=== PATIENT | male | born 1945 | race Caucasian/White ===

== ENCOUNTER 2017-06-13 04:21 | Inpatient (IN) | payer OTHER ==
[~2017-06-13] VITALS: Ht 170.2 cm; Wt 84.3 kg
[2017-06-13] MEDS ORDERED: ONDANSETRON INJ 2 MG/ML 2 ML VIAL IV STA ×2 (04:53→07:42)
[2017-06-13] MEDS ORDERED: SODIUM CHLORIDE 0.9% 1000ML 1,000 ML IV STA (04:53)
[2017-06-13] MEDS ORDERED: OPTIRAY 320 IV PRN (05:00)
[2017-06-13] MEDS ORDERED: AMLO-110 PO (05:09)
[2017-06-13] MEDS ORDERED: PANT40TA PO (05:09)
[2017-06-13] MEDS ORDERED: ATOR-24 PO (05:09)
[2017-06-13] MEDS ORDERED: ENAL10TA88 PO (05:09)
[2017-06-13] MEDS ORDERED: MODA1TAB PO (05:09)
[2017-06-13] MEDS ORDERED: MULT-506 PO (05:10)
[2017-06-13] MEDS ORDERED: MULTCAP36 PO (05:10)
[2017-06-13] MEDS ORDERED: ASPI81TA28 PO (05:10)
[2017-06-13] MEDS ORDERED: OMEG10007 PO (05:10)
[2017-06-13] MEDS ORDERED: CHOL1000 PO (05:10)
[2017-06-13 05:13] LABS: URINE APPEARANCE CLEAR (CLEAR); URINE BILIRUBIN NEG (NEG); URINE COLOR DK YELLOW; URINE NITRITE NEG (NEG); URINE SPECIFIC GRAVITY 1.034 (1.000-1.030); UROBILINOGEN NEG (NEG); ZZUR CULT IF INDIC CLEAN CATCH NO
[2017-06-13 05:16] LABS: MANUAL MICROSCOPIC REQUIRED? NO; REVIEW REQ? NO
[2017-06-13 05:34] LABS: BASO % 0.1 %; BASO ABS # 0.01 K/uL (0-0.2); COMPLETE YES; IG% 0.3 %; LYMPH % 3.2 %; LYMPH ABS # 0.48 K/uL (1.2-3.4); MEAN CORPUSCULAR HEMOGLOBIN 32.1 pg (25-34); MEAN CORPUSCULAR HGB CONC 34.5 g/dl (32-36); MEAN PLATELET VOLUME 9.6 fL (7.4-10.4); MONO % 4.7 %; NEUT % 91.7 %; PLATELET COUNT 185 K/uL (130-400); RED BLOOD COUNT 4.73 M/uL (4.7-6.1); WHITE BLOOD COUNT 14.96 K/uL (4.8-10.8)
--- NOTE | 2017-06-13 05:36 | EMERGENCY ROOM VISIT NOTE ---
History First contact with patient: 04:32 Chief Complaint: VOMITING Stated Complaint: NAUSEA,VOMITING,STOMACH PAIN,HICCUPS Nursing Triage Summary: pt c/o GI problems since tuesday. reports constipation tuesday and retching/vomiting tuesday. pt reports stools are now soft/watery. pt states he feels bloated and is unable to keep "anything down." pt states he takes a proton pump inhibitor. bowel sounds WNL. abdomen rounded, distended, soft. History of Present Illness The patient is a 71 year old male who presents to the Emergency Room with complaints of vomiting. The patient states that he had a loose bowel movement yesterday in the late morning. He reports that after that, he developed vomiting and has had multiple episodes of vomiting since that period he has been unable to keep anything down. He states that he developed hiccups, and has multiple episodes of vomiting. He states that his abdomen feels uncomfortable, but denies any focal pain. He denies any history of abdominal surgeries. He has had no further episodes of diarrhea. He denies fevers/chills or urinary symptoms. He does report a history of H. pylori and currently takes a proton pump inhibitor for reflux. Review of Systems A complete 10 point review of systems was reviewed with the patient with pertinent positives and negatives as per history of present illness. All else were negative. Past Medical/Surgical History Medical Problems: (1) Vomiting Social History Smoking Status: Never Smoker Current/Historical Medications Scheduled Amlodipine (Norvasc), 5 MG PO DAILY Aspirin (Aspirin Ec), 81 MG PO DAILY Atorvastatin (Lipitor), 40 MG PO DAILY Cholecalciferol (Vitamin D3), 1 TAB PO DAILY Enalapril (Vasotec), 10 MG PO DAILY Fish Oil ([place]-3), 1 CAP PO DAILY Modafinil (Provigil), 200 MG PO DAILY Multiple Vitamins W/ Minerals (Preservision/Lutein), 1 CM PO DAILY Multivitamin (Multivitamin), 1 TAB PO DAILY Pantoprazole (Protonix), 40 MG PO DAILY Physical Exam Vital Signs Date Time Temp Pulse Resp B/P (MAP) Pulse Ox O2 Delivery O2 Flow Rate FiO2 06/13/17 07:45 92 18 126/75 94 Room Air 06/13/17 05:44 94 18 119/83 96 Room Air 06/13/17 04:29 37.0 94 20 116/75 95 Room Air Physical Exam VITALS: Vitals are noted on the nurse's note and reviewed by myself. Vital signs stable. GENERAL: This is a 71-year-old male, in no acute distress, nondiaphoretic, well- developed well-nourished. EARS: External auditory canals clear, tympanic membranes pearly tobias without erythema or effusion bilaterally. EYES: Pupils equal round and reactive to light and accommodation. MOUTH: Mucous membranes moist. NECK: Supple without nuchal rigidity. HEART: Regular rate and rhythm without murmurs gallops or rubs. LUNGS: Clear to auscultation bilaterally without wheezes, rales or rhonchi. ABDOMEN: Positive bowel sounds x 4. Soft, slight diffuse tenderness to palpation. No guarding or rebound tenderness. NEURO: Patient was alert and oriented to person place and time. Medical Decision & Procedures ER Provider Diagnostic Interpretation: ABDOMEN AND PELVIS CT WITHOUT CONTRAST FINDINGS: There is mild left hemidiaphragm elevation. Calcified granuloma left lower lobe is noted in addition to calcified left hilar lymph nodes. There are linear subsegmental pleural based opacities of the left lower lobe suggesting atelectasis or scarring. Mild dependent bibasilar atelectasis. Groundglass opacities of the right middle lobe and lingula may also reflect atelectasis or mild pneumonitis. There is no pneumoperitoneum or pneumatosis identified. The exam is mildly motion degraded. Coronary arterial disease noted. Evaluation of the solid abdominal organs is limited without the use of IV contrast. The liver, spleen, pancreas and adrenal glands are within normal limits. There are multiple gallstones in the gallbladder. No CT evidence of acute cholecystitis. No intrahepatic biliary ductal dilation. Mild nonspecific bilateral perinephric stranding. 10 mm low attenuating lesion of the inferior pole left kidney suggests cyst. Probable nonobstructing calculus of the interpolar right kidney seen on image 174 series 3. Ureters and urinary bladder are unremarkable. There is mild atherosclerosis of the aorta. No bulky adenopathy. There are multiple mildly dilated loops of small bowel within the lower abdomen and pelvis with air-fluid levels measuring up to 3.3 cm transversely. No definite transition point identified. Colonic diverticulosis without diverticulitis. Appendix not visualized. Soft tissues are unremarkable. There is facet arthrosis of the lower lumbar spinal multilevel spondylitic changes. IMPRESSION: 1. Multiple mildly dilated loops of small bowel within the lower abdomen and pelvis with air-fluid levels without discrete transition point identified. These findings are suspicious for low-grade small bowel obstruction or ileus. Follow-up recommended. No pneumoperitoneum or pneumatosis. 2. Colonic diverticulosis without diverticulitis. 3. Cholelithiasis without CT evidence of acute cholecystitis. 4. Evidence of prior granulomatous disease. Laboratory Results 06/13/17 05:25 Red Blood Count 4.73, Mean Corpuscular Volume 93.0, Mean Corpuscular Hemoglobin 32.1, Mean Corpuscular Hemoglobin Concent 34.5, Mean Platelet Volume 9.6, Neutrophils (%) (Auto) 91.7, Lymphocytes (%) (Auto) 3.2, Monocytes (%) (Auto) 4.7, Eosinophils (%) (Auto) 0.0, Basophils (%) (Auto) 0.1, Neutrophils # (Auto) 13.71, Lymphocytes # (Auto) 0.48, Monocytes # (Auto) 0.71, Eosinophils # (Auto) 0.00, Basophils # (Auto) 0.01 06/13/17 05:25 Test 06/13/17 04:50 06/13/17 05:25 Urine Color DK YELLOW Urine Appearance CLEAR (CLEAR) Urine pH 5.0 (4.5-7.5) Urine Specific [place] 1.034 (1.000-1.030) Urine Protein TRACE (NEG) Urine Glucose (UA) NEG (NEG) Urine Ketones NEG (NEG) Urine Occult Blood NEG (NEG) Urine Nitrite NEG (NEG) Urine Bilirubin NEG (NEG) Urine Urobilinogen NEG (NEG) Urine Leukocyte Esterase NEG (NEG) Urine WBC (Auto) 1-5 /hpf (0-5) Urine RBC (Auto) 5-10 /hpf (0-4) Urine Hyaline Casts (Auto) 1-5 /lpf (0-5) Urine Epithelial Cells (Auto) 10-20 /lpf (0-5) Urine Bacteria (Auto) NEG (NEG) White Blood Count 14.96 K/uL (4.8-10.8) Red Blood Count 4.73 M/uL (4.7-6.1) Hemoglobin 15.2 g/dL (14.0-18.0) Hematocrit 44.0 % (42-52) Mean Corpuscular Volume 93.0 fL (80-100) Mean Corpuscular Hemoglobin 32.1 pg (25-34) Mean Corpuscular Hemoglobin Concent 34.5 g/dl (32-36) Platelet Count 185 K/uL (130-400) Mean Platelet Volume 9.6 fL (7.4-10.4) Neutrophils (%) (Auto) 91.7 % Lymphocytes (%) (Auto) 3.2 % Monocytes (%) (Auto) 4.7 % Eosinophils (%) (Auto) 0.0 % Basophils (%) (Auto) 0.1 % Neutrophils # (Auto) 13.71 K/uL (1.4-6.5) Lymphocytes # (Auto) 0.48 K/uL (1.2-3.4) Monocytes # (Auto) 0.71 K/uL (0.11-0.59) Eosinophils # (Auto) 0.00 K/uL (0-0.5) Basophils # (Auto) 0.01 K/uL (0-0.2) RDW Standard Deviation 46.4 fL (36.4-46.3) RDW Coefficient of Variation 13.6 % (11.5-14.5) Immature Granulocyte % (Auto) 0.3 % Immature Granulocyte # (Auto) 0.05 K/uL (0.00-0.02) Anion Gap 9.0 mmol/L (3-11) Est Creatinine Clear Calc Drug Dose 51.3 ml/min Estimated GFR () 58.5 Estimated GFR (Non- 50.5 BUN/Creatinine Ratio 23.0 (10-20) Calcium Level 8.8 mg/dl (8.5-10.1) Total Bilirubin 0.5 mg/dl (0.2-1) Aspartate Amino Transf (AST/SGOT) 19 U/L (15-37) Alanine Aminotransferase (ALT/SGPT) 32 U/L (12-78) Alkaline Phosphatase 86 U/L (45-117) Total Protein 7.0 gm/dl (6.4-8.2) Albumin 3.8 gm/dl (3.4-5.0) Globulin 3.2 gm/dl (2.5-4.0) Albumin/Globulin Ratio 1.2 (0.9-2) Lipase 102 U/L (73-393) Medications Administered Medications (Trade) Dose Ordered Sig/Seamus Route Start Time Stop Time Status Last Admin Dose Admin Sodium Chloride 1,000 ml @ 999 mls/hr Q1H1M STAT IV 06/13/17 04:53 06/13/17 05:53 DC 06/13/17 05:26 999 MLS/HR Ondansetron HCl (Zofran Inj) 4 mg NOW STAT IV 06/13/17 04:53 06/13/17 04:55 DC 06/13/17 05:25 4 MG Ondansetron HCl (Zofran Inj) 4 mg NOW STAT IV 06/13/17 07:42 06/13/17 07:43 DC 06/13/17 07:49 4 MG ED Course The patient was evaluated as above. Labs were drawn and IV access was obtained. Patient was medicated with 4 mg Zofran and 1 L normal saline solution. CT of the abdomen and pelvis was performed and read by radiology as above. Patient was reevaluated and findings were discussed. He is agreeable to admission. Case was discussed with the [facility] hospitalist, Dr. Goodman. They agreed to evaluate the patient for admission. Medical Decision Differential diagnosis includes small bowel obstruction, gastroenteritis, colitis, diverticulitis, cholecystitis, among others. The patient is a 71-year-old male who presents today complaining of vomiting. Labs revealed leukocytosis of 14,000. Creatinine is slightly elevated at 1.4, likely secondary to dehydration as the patient has had nothing to drink or eat since yesterday. CT scan showed findings consistent with low-grade small bowel obstruction. Patient will better after treatment with Zofran. He will be evaluated by the [facility] hospitalist for admission. Medication Reconcilliation Current Medication List: was personally reviewed by [place] Blood Pressure Screening Patient's blood pressure: Normal blood pressure Impression Primary Impression: Small bowel obstruction Departure Information Referrals No Doctor, Assigned (PCP) Patient Instructions [facility]
[2017-06-13 05:51] LABS: CALCIUM 8.8 mg/dl (8.5-10.1); CREATININE 1.41 mg/dl (0.60-1.40); POTASSIUM 3.9 mmol/L (3.5-5.1)
[2017-06-13 05:54] LABS: ALB/GLOB RATIO 1.2 (0.9-2)
--- NOTE | 2017-06-13 06:59 | DIAGNOSTIC IMAGING REPORT ---
ABDOMEN AND PELVIS CT WITHOUT CONTRAST CT DOSE: 464.04 mGy.cm HISTORY: Acute vomiting. vomiting, elevated creat TECHNIQUE: Multiaxial CT images of the abdomen and pelvis were performed without contrast. A dose lowering technique was utilized adhering to the principles of ALARA. COMPARISON STUDY: None. FINDINGS: There is mild left hemidiaphragm elevation. Calcified granuloma left lower lobe is noted in addition to calcified left hilar lymph nodes. There are linear subsegmental pleural based opacities of the left lower lobe suggesting atelectasis or scarring. Mild dependent bibasilar atelectasis. Groundglass opacities of the right middle lobe and lingula may also reflect atelectasis or mild pneumonitis. There is no pneumoperitoneum or pneumatosis identified. The exam is mildly motion degraded. Coronary arterial disease noted. Evaluation of the solid abdominal organs is limited without the use of IV contrast. The liver, spleen, pancreas and adrenal glands are within normal limits. There are multiple gallstones in the gallbladder. No CT evidence of acute cholecystitis. No intrahepatic biliary ductal dilation. Mild nonspecific bilateral perinephric stranding. 10 mm low attenuating lesion of the inferior pole left kidney suggests cyst. Probable nonobstructing calculus of the interpolar right kidney seen on image 174 series 3. Ureters and urinary bladder are unremarkable. There is mild atherosclerosis of the aorta. No bulky adenopathy. There are multiple mildly dilated loops of small bowel within the lower abdomen and pelvis with air-fluid levels measuring up to 3.3 cm transversely. No definite transition point identified. Colonic diverticulosis without diverticulitis. Appendix not visualized. Soft tissues are unremarkable. There is facet arthrosis of the lower lumbar spinal multilevel spondylitic changes. IMPRESSION: 1. Multiple mildly dilated loops of small bowel within the lower abdomen and pelvis with air-fluid levels without discrete transition point identified. These findings are suspicious for low-grade small bowel obstruction or ileus. Follow-up recommended. No pneumoperitoneum or pneumatosis. 2. Colonic diverticulosis without diverticulitis. 3. Cholelithiasis without CT evidence of acute cholecystitis. 4. Evidence of prior granulomatous disease. Electronically signed by: Ronnie Steven M.D. 06/13/2017 6:58 AM Dictated Date/Time: 06/13/2017 6:51 AM
[2017-06-13] MEDS ORDERED: ONDANSETRON INJ 2 MG/ML 2 ML VIAL IV PRN (07:45)
[2017-06-13 08:00] VITALS: O2SAT 94; Ht 170.2 cm; Wt 84.3 kg
[2017-06-13] MEDS ORDERED: HEPARIN SOD 5000 UNIT/0.5 ML CARP SQ SCH (09:00)
--- NOTE | 2017-06-13 09:42 | History and Physical ---
History & Physical Date & Time of Service: Jun 13, 2017 at 09:08 Chief Complaint: Nausea,Vomiting,Stomach Pain,Hiccups Primary Care Physician: No Doctor, Assigned History of Present Illness Source: patient, family Pt is 71 y/o M with PMH CAD with stent to LAD in 2013, HTN, GERD, CKD, SANCHEZ presented to ER with c/o vomiting. Pt reports 2 days ago started with some nausea and constipation. Initially took maalox with a little relief and ate a big meal. Had loose BM yesterday. Pt states yesterday started with increased nausea and vomiting and reports multiple episodes of vomiting over the past 15 hours. States dry heaves this am. No BM today. Last night temp 99F. Feels bloated and having epigastric pressure and burping and hiccups. Nothing to eat since yesterday. Tried sipping water through the night but had vomiting. Denies hx abdominal surgery or SBO in past. Denies hematemesis, melena, hematochezia, dysuria, urinary frequency/hesitancy, PAUL, dizziness, syncope, vision changes, neck pain, CP, SOB, orthopnea, palpitations, cough, sore throat, choking, otalgia, rhinorrhea, paresthesias, weakness, extremity edema, rashes. Pt visiting daughter. Is from [place]. PCP: Dr Olesya Huffman. In ER pt given 2 doses Zofran which pt states no further nausea and decreased epigastric pressure. No further vomiting. Given 1L NSS. Pt denies pain medicine at this time. CT abd/pelvis: Multiple mildly dilated loops of small bowel within the lower abdomen and pelvis with air-fluid levels without discrete transition point identified. suspicious for low-grade small bowel obstruction or ileus. No pneumoperitoneum or pneumatosis. Colonic diverticulosis without diverticulitis. Cholelithiasis without CT evidence of acute cholecystitis. Past Medical/Surgical History Medical Problems: (1) CAD (coronary artery disease) Permanent Comment: hx stent to LAD-2013 Status: Chronic (2) Chronic kidney disease Status: Chronic (3) GERD (gastroesophageal reflux disease) Status: Chronic (4) HTN (hypertension) Status: Chronic (5) Hx of Helicobacter infection Permanent Comment: pt reports 2011. dx with stool h. pylori testing. was treated Status: Resolved (6) SANCHEZ (obstructive sleep apnea) Status: Chronic Surgical Problems: (1) Hx of colonoscopy Permanent Comment: pt reports 2014 - polyps Status: Resolved (2) S/P coronary artery stent placement Permanent Comment: 2013 - LAD Status: Resolved Family History Diabetes mellitus FATHER FH: CAD (coronary artery disease) GRANDFATHER ([place] age 69, ) FH: hyperlipidemia FATHER FHx: Parkinson's disease MOTHER Hypertension FATHER Stroke GRANDMOTHER Social History Smoking Status: Never Smoker Smokeless Tobacco Use: No Alcohol Use: 3-4 drinks (beer/wine) a week Drug Use: none Housing status: lives alone Allergies Coded Allergies: No Known Allergies (Unverified , 06/13/17) Home Medications Scheduled Amlodipine (Norvasc), 5 MG PO DAILY Aspirin (Aspirin Ec), 81 MG PO DAILY Atorvastatin (Lipitor), 40 MG PO DAILY Cholecalciferol (Vitamin D3), 1 TAB PO DAILY Ciprofloxacin (Ciprofloxacin HCl), 1 TAB PO BID Enalapril (Vasotec), 10 MG PO DAILY Fish Oil ([place]-3), 1 CAP PO DAILY Metronidazole (Flagyl), 1 TAB PO TID Modafinil (Provigil), 200 MG PO DAILY Multiple Vitamins W/ Minerals (Preservision/Lutein), 1 CM PO DAILY Multivitamin (Multivitamin), 1 TAB PO DAILY Pantoprazole (Protonix), 40 MG PO DAILY Review of Systems Constitutional: + chills (2 days ago), + problem reported (see HPI), No weight loss Eyes: No worsening of vision, No eye pain, No redness, No discharge ENT: + problem reported, No unusual epistaxis, No nasal symptoms, No tinnitus Respiratory: No cough, No sputum, No wheezing, No shortness of breath Cardiovascular: No chest pain, No orthopnea, No PND, No edema, No palpitations Abdomen: + problem reported (see HPI) Musculoskeletal: No joint pain, No muscle pain, No swelling Genitourinary - Male: No hematuria, No dysuria, No urinary frequency, No urinary urgency, No urinary hesitancy, No urinary retention Neurologic: No weakness, No numbness/tingling, No vertigo, No balance problems Psychiatric: No depression symptoms, No anxiety Physical Exam Vital Signs Date Time Temp Pulse Resp B/P (MAP) Pulse Ox O2 Delivery O2 Flow Rate FiO2 06/13/17 07:45 92 18 126/75 94 Room Air 06/13/17 05:44 94 18 119/83 96 Room Air 06/13/17 04:29 37.0 94 20 116/75 95 Room Air General Appearance: WD/WN, no apparent distress Head: normocephalic, atraumatic Eyes: normal inspection, PERRL, EOMI, sclerae normal ENT: hearing grossly normal (pt wearing hearing aid), pharynx normal, + pertinent finding (dry mucous membranes) Neck: supple, no JVD, no carotid bruits, trachea midline Respiratory/Chest: chest non-tender, lungs clear, normal breath sounds, no respiratory distress, no accessory muscle use Cardiovascular: regular rate, rhythm, no murmur, normal peripheral pulses Abdomen/GI: + pertinent finding (obese abdomen, hypoactive BS throughout, soft , +tenderness epigastric only without rebound or guarding ) Extremities/Musculoskelatal: normal inspection, normal capillary refill, no pedal edema, normal range of motion, non-tender Neurologic/Psych: alert, normal mood/affect, oriented x 3 Skin: normal color, warm/dry, + pertinent finding (excoriation left anterior ankle without surrounding erythema or edema) Diagnostics Laboratory Results Results Past 24 Hours Test 06/13/17 04:50 06/13/17 05:25 Range/Units Urine Color DK YELLOW Urine Appearance CLEAR CLEAR Urine pH 5.0 4.5-7.5 Urine Specific [place] 1.034 1.000-1.030 Urine Protein TRACE NEG Urine Glucose (UA) NEG NEG Urine Ketones NEG NEG Urine Occult Blood NEG NEG Urine Nitrite NEG NEG Urine Bilirubin NEG NEG Urine Urobilinogen NEG NEG Urine Leukocyte Esterase NEG NEG Urine WBC (Auto) 1-5 0-5 /hpf Urine RBC (Auto) 5-10 0-4 /hpf Urine Hyaline Casts (Auto) 1-5 0-5 /lpf Urine Epithelial Cells (Auto) 10-20 0-5 /lpf Urine Bacteria (Auto) NEG NEG White Blood Count 14.96 4.8-10.8 K/uL Red Blood Count 4.73 4.7-6.1 M/uL Hemoglobin 15.2 14.0-18.0 g/dL Hematocrit 44.0 42-52 % Mean Corpuscular Volume 93.0 80-100 fL Mean Corpuscular Hemoglobin 32.1 25-34 pg Mean Corpuscular Hemoglobin Concent 34.5 32-36 g/dl Platelet Count 185 130-400 K/uL Mean Platelet Volume 9.6 7.4-10.4 fL Neutrophils (%) (Auto) 91.7 % Lymphocytes (%) (Auto) 3.2 % Monocytes (%) (Auto) 4.7 % Eosinophils (%) (Auto) 0.0 % Basophils (%) (Auto) 0.1 % Neutrophils # (Auto) 13.71 1.4-6.5 K/uL Lymphocytes # (Auto) 0.48 1.2-3.4 K/uL Monocytes # (Auto) 0.71 0.11-0.59 K/uL Eosinophils # (Auto) 0.00 0-0.5 K/uL Basophils # (Auto) 0.01 0-0.2 K/uL RDW Standard Deviation 46.4 36.4-46.3 fL RDW Coefficient of Variation 13.6 11.5-14.5 % Immature Granulocyte % (Auto) 0.3 % Immature Granulocyte # (Auto) 0.05 0.00-0.02 K/uL Sodium Level 141 136-145 mmol/L Potassium Level 3.9 3.5-5.1 mmol/L Chloride Level 105 98-107 mmol/L Carbon Dioxide Level 27 21-32 mmol/L Anion Gap 9.0 3-11 mmol/L Blood Urea Nitrogen 32 7-18 mg/dl Creatinine 1.41 0.60-1.40 mg/dl Est Creatinine Clear Calc Drug Dose 51.3 ml/min Estimated GFR () 58.5 Estimated GFR (Non- 50.5 BUN/Creatinine Ratio 23.0 10-20 Random Glucose 131 70-99 mg/dl Calcium Level 8.8 8.5-10.1 mg/dl Total Bilirubin 0.5 0.2-1 mg/dl Aspartate Amino Transf (AST/SGOT) 19 15-37 U/L Alanine Aminotransferase (ALT/SGPT) 32 12-78 U/L Alkaline Phosphatase 86 45-117 U/L Total Protein 7.0 6.4-8.2 gm/dl Albumin 3.8 3.4-5.0 gm/dl Globulin 3.2 2.5-4.0 gm/dl Albumin/Globulin Ratio 1.2 0.9-2 Lipase 102 73-393 U/L Diagnostic Radiology ABD/PELVIS CT IMPRESSION: 1. Multiple mildly dilated loops of small bowel within the lower abdomen and pelvis with air-fluid levels without discrete transition point identified. These findings are suspicious for low-grade small bowel obstruction or ileus. Follow-up recommended. No pneumoperitoneum or pneumatosis. 2. Colonic diverticulosis without diverticulitis. 3. Cholelithiasis without CT evidence of acute cholecystitis. 4. Evidence of prior granulomatous disease. EKG EKG: NSR, rate 93, no ST elevations noted Impression Assessment and Plan VOMITING - SBO vs ILEUS Pt with onset N/V, bloating, increased burping. No vomiting past 4 hours. Improved nausea and epigastric bloating sensation with zofran in ER. BS noted on abd exam. Pt afebrile. CT abd/pelvis: IMPRESSION: Multiple mildly dilated loops of small bowel within the lower abdomen and pelvis with air-fluid levels without discrete transition point identified, suspicious for low-grade small bowel obstruction or ileus. No pneumoperitoneum or pneumatosis. Colonic diverticulosis without diverticulitis Cholelithiasis without CT evidence of acute cholecystitis. WBC: 14.9. Suspect leukocytosis from vomiting. Pt with dehydration. Normal liver functions. -NPO -NSS @ 100ml/hr -Zofran IV prn N/V -pt denies pain meds at this time, will continue to monitor -cbc, cmp in am -abd xray in am -surgical consult CAD/HTN Pt denies CP, SOB. EKG: NSR, rate 93, no ST elevations noted -continue amlodipine -continue enalapril -continue lipitor -continue ASA GERD -PPI CKD No previous kidney functions available at this time. Pt reports was told "mild kidney disease". today BUN: 32, CR: 1.4, GFR: 50. Pt with some dehydration also -continue to monitor -avoid nephrotoxic agents SANCHEZ -CPAP HS per home settings -will hold home Provigil at this time DVT PROPHYLAXIS -SCDs at this time until seen by surgery DISPOSITION -admit med/surg -Full Code as per discussion with pt -Follows with Dr Olesya Bond with [facility] in [place] for routine care Pt was seen with Dr Cameron. See addendum Attending Addendum Pt was seen and examined. Agreed with Vera exam, assessment and plan. Complaint of vomiting. CT Abd/Pelvis showed multiple mildly dilated loops of small bowel within the lower abdomen and pelvis with air-fluid levels without discrete transition point identified. These findings are suspicious for low-grade small bowel obstruction or ileus. Consult surgery. Will keep NPO for now. continue monitor. Jovita Cameron MD Level of Care Med/Surg Advanced Directives Existing Living Will: No Existing Power of Scorekeeper: No Resuscitation Status FULL RESUSCITATION VTE Prophylaxis VTE Risk Assessment Done? Y/N: Yes Risk Level: Moderate Given or contraindicated: SCD's
[2017-06-13 10:00] VITALS: BP 117/73; PULSE 94; TEMP 37.2; O2SAT 93
[2017-06-13] MEDS: PANTOprazole INJ 40 MG in SYRINGE 0 ML IV SCH (11:02)
[2017-06-13] MEDS: SODIUM CHLORIDE 0.9% 1000ML 1,000 ML IV SCH ×2 (11:02→21:10)
--- NOTE | 2017-06-13 11:27 | Medical Consult ---
Consultation Date of Consultation: Jun 13, 2017. Attending Physician: Jovita Cameron M.D. Reason for Consultation: low grd sbo vs ileus History of Present Illness pt adm through ER with N/V, bloating- mult episodes of vomiting over 24 hrs assoc with dehydration. BM last pm. CT shows mildly dilated small bowel c/w low grade obstruction vs ileus- no significant abd pain. WBC 14.9 on adm. No prior abd surgery Past Medical/Surgical History Medical Problems: (1) Small bowel obstruction Status: Acute Family History Diabetes mellitus FATHER FH: CAD (coronary artery disease) GRANDFATHER ([place] age 69, ) FH: hyperlipidemia FATHER FHx: Parkinson's disease MOTHER Hypertension FATHER Stroke GRANDMOTHER Social History Smoking Status: Never Smoker Smokeless Tobacco Use: No Alcohol Use: 3-4 drinks (beer/wine) a week Drug Use: none Allergies Coded Allergies: No Known Allergies (Unverified , 06/13/17) Current Inpatient Medications Current Inpatient Medications Medications (Trade) Dose Ordered Sig/Seamus Route Start Time Stop Time Status Last Admin Dose Admin Ioversol (Optiray 320) 100 ml UD PRN IV 06/13/17 05:00 06/17/17 04:59 Sodium Chloride 1,000 ml @ 100 mls/hr Q10H IV 06/13/17 10:00 07/13/17 09:59 06/13/17 11:02 100 MLS/HR Ondansetron HCl (Zofran Inj) 4 mg Q6H PRN IV 06/13/17 07:45 07/13/17 07:44 Amlodipine Besylate (Norvasc Tab) 5 mg DAILY PO 06/14/17 09:00 07/14/17 08:59 Aspirin (Ecotrin Tab) 81 mg DAILY PO 06/14/17 09:00 07/14/17 08:59 Atorvastatin Calcium (Lipitor Tab) 40 mg DAILY PO 06/14/17 09:00 07/14/17 08:59 Enalapril Maleate (Vasotec Tab) 10 mg DAILY PO 06/14/17 09:00 07/14/17 08:59 Pantoprazole Sodium 40 mg/ Syringe 10 ml @ 5 mls/min DAILY@11 IV 06/13/17 11:00 07/13/17 10:59 06/13/17 11:02 5 MLS/MIN Review of Systems Constitutional: No fever, No chills Respiratory: No cough, No shortness of breath Cardiovascular: No chest pain Abdomen: + nausea, + vomiting, No pain Genitourinary - Male: No dysuria Endocrine: No fatigue Integumentary: No rash Physical Exam Date Time Temp Pulse Resp B/P (MAP) Pulse Ox O2 Delivery O2 Flow Rate FiO2 06/13/17 10:00 37.2 94 18 117/73 (88) 93 Room Air 06/13/17 09:35 Room Air 06/13/17 09:11 84 18 126/69 96 Room Air 06/13/17 08:00 94 Room Air 06/13/17 07:45 92 18 126/75 94 Room Air 06/13/17 05:44 94 18 119/83 96 Room Air 06/13/17 04:29 37.0 94 20 116/75 95 Room Air walking in hallway with daughter General Appearance: no apparent distress Head: atraumatic Neck: supple Respiratory/Chest: no respiratory distress Abdomen/GI: non tender (decreased bowel sounds), + distended Extremities/Musculoskelatal: no pedal edema Neurologic/Psych: alert Skin: warm/dry Laboratory Results Last 24 Hours Test 06/13/17 04:50 06/13/17 05:25 Urine Color DK YELLOW Urine Appearance CLEAR Urine pH 5.0 Urine Specific [place] 1.034 Urine Protein TRACE Urine Glucose (UA) NEG Urine Ketones NEG Urine Occult Blood NEG Urine Nitrite NEG Urine Bilirubin NEG Urine Urobilinogen NEG Urine Leukocyte Esterase NEG Urine WBC (Auto) 1-5 /hpf Urine RBC (Auto) 5-10 /hpf Urine Hyaline Casts (Auto) 1-5 /lpf Urine Epithelial Cells (Auto) 10-20 /lpf Urine Bacteria (Auto) NEG White Blood Count 14.96 K/uL Red Blood Count 4.73 M/uL Hemoglobin 15.2 g/dL Hematocrit 44.0 % Mean Corpuscular Volume 93.0 fL Mean Corpuscular Hemoglobin 32.1 pg Mean Corpuscular Hemoglobin Concent 34.5 g/dl Platelet Count 185 K/uL Mean Platelet Volume 9.6 fL Neutrophils (%) (Auto) 91.7 % Lymphocytes (%) (Auto) 3.2 % Monocytes (%) (Auto) 4.7 % Eosinophils (%) (Auto) 0.0 % Basophils (%) (Auto) 0.1 % Neutrophils # (Auto) 13.71 K/uL Lymphocytes # (Auto) 0.48 K/uL Monocytes # (Auto) 0.71 K/uL Eosinophils # (Auto) 0.00 K/uL Basophils # (Auto) 0.01 K/uL RDW Standard Deviation 46.4 fL RDW Coefficient of Variation 13.6 % Immature Granulocyte % (Auto) 0.3 % Immature Granulocyte # (Auto) 0.05 K/uL Sodium Level 141 mmol/L Potassium Level 3.9 mmol/L Chloride Level 105 mmol/L Carbon Dioxide Level 27 mmol/L Anion Gap 9.0 mmol/L Blood Urea Nitrogen 32 mg/dl Creatinine 1.41 mg/dl Est Creatinine Clear Calc Drug Dose 51.3 ml/min Estimated GFR () 58.5 Estimated GFR (Non- 50.5 BUN/Creatinine Ratio 23.0 Random Glucose 131 mg/dl Calcium Level 8.8 mg/dl Total Bilirubin 0.5 mg/dl Aspartate Amino Transf (AST/SGOT) 19 U/L Alanine Aminotransferase (ALT/SGPT) 32 U/L Alkaline Phosphatase 86 U/L Total Protein 7.0 gm/dl Albumin 3.8 gm/dl Globulin 3.2 gm/dl Albumin/Globulin Ratio 1.2 Lipase 102 U/L Assessment & Plan 06/13/17- pt adm with N/V, dehydration- mildly dilated small bowel on CT- no transition point- favor ileus over mechanical obstruction. Cont IV hydration, walking, hold on NG tube, monitor/replace electrolytes. Pt does not appear to require surgery at present- will follow closely.
--- NOTE | 2017-06-13 14:37 | Gastrointestinal Consultation ---
Gastrointestinal Consultation Date of Consultation: Jun 13, 2017 Attending Physician: Jovita Cameron Consulting Physician: Joy Martin Reason for Consultation: SBO History of Present Illness Patient is a 71 year old male seen for possible SBO. Hx of CAD s/p LAD stent in 2013, HTN, GERD, CKD, SANCHEZ. He was visiting dght from [place]. On Tuesday at large meal. Tuesday started to have n/v, loose stools w/o rectal bleeding. Baseline has mild constipation, BM every 2-3 days. Pt's grandson also w one episode of N/ V but had resolved. ? undercooked [place] consumption, but denies any raw meats/ seafood. Denies any new meds. Symptoms improved by night time but then Tuesday started to get worse again. Has associated mild temp of 99. Some bloating and epigastric area pressure, burping, hiccups. Eventually decided to go to ED after N/V worse by 3A last night. CT abd/pelvis showed multiple mildly dilated loops of small bowel within lower abd/pelvis w air fluid levels w/o transition point suspicious for low grade SBO vs ileus. No pneumoperitoneum or pneumatosis. + colonic diverticulosis w/o diverticulitis. + cholelithiasis w/o cholecystitis. Labs w WBC of 14K, Cr 1.4. No LFTs or lipase elevation. He denies any hx of SBO, abd surgery/adhesions. Denies any use of chronic narcotics. Hx of at least 3 colonoscopies, last one done 3 yrs ago in [place]. Hx of benign colon polyps. N/V had resolved since meds in ED. Denies any BM since last night. Currently no abd pain. Is passing small amt of flatus. Past Medical/Surgical History Medical Problems: (1) Small bowel obstruction Status: Acute Past Medical History: See above. Past Surgical History: See above. Family History Diabetes mellitus FATHER FH: CAD (coronary artery disease) GRANDFATHER ([place] age 69, ) FH: hyperlipidemia FATHER FHx: Parkinson's disease MOTHER Hypertension FATHER Stroke GRANDMOTHER Social History Smoking Status: Never Smoker Alcohol Use: occasionally Drug Use: none Allergies Coded Allergies: No Known Allergies (Unverified , 06/13/17) Current Medications Home Meds and Scripts Medications Dose Route/Sig Max Daily Dose Days Date Category Vitamin D3 (Cholecalciferol) 1,000 Unit Tab 1 Tab PO DAILY 90 06/13/17 Reported [place]-3 (Fish Oil) 1 Ea Cap 1 Cap PO DAILY 06/13/17 Reported Preservision/Lutein (Multiple Vitamins W/ Minerals) 1 Cap Cap 1 Cm PO DAILY 06/13/17 Reported Aspirin Ec (Aspirin) 81 Mg Tab 81 Mg PO DAILY 06/13/17 Reported Multivitamin (Multivitamins) Tab 1 Tab PO DAILY 06/13/17 Reported Protonix (Pantoprazole Sodium) 40 Mg Tab 40 Mg PO DAILY 06/13/17 Reported Vasotec (Enalapril Maleate) 10 Mg Tab 10 Mg PO DAILY 06/13/17 Reported Provigil (Modafinil) 200 Mg Tab 200 Mg PO DAILY 06/13/17 Reported Norvasc (Amlodipine Besylate) 5 Mg Tab 5 Mg PO DAILY 06/13/17 Reported Lipitor (Atorvastatin Calcium) 40 Mg Tab 40 Mg PO DAILY 06/13/17 Reported Review of Systems Constitutional: + chills, No fever Respiratory: No cough, No shortness of breath Cardiac: No chest pain Abdomen: + see HPI, No pain, No nausea, No vomiting, No diarrhea, No GI bleeding Physical Exam Date Time Temp Pulse Resp B/P (MAP) Pulse Ox O2 Delivery O2 Flow Rate FiO2 06/13/17 10:00 37.2 94 18 117/73 (88) 93 Room Air 06/13/17 09:35 Room Air 06/13/17 09:11 84 18 126/69 96 Room Air 06/13/17 08:00 94 Room Air 06/13/17 07:45 92 18 126/75 94 Room Air 06/13/17 05:44 94 18 119/83 96 Room Air 06/13/17 04:29 37.0 94 20 116/75 95 Room Air General Appearance: WD/WN, no apparent distress Eyes: normal inspection, PERRL, EOMI Neck: supple, no JVD, trachea midline Respiratory/Chest: normal breath sounds, no respiratory distress, no accessory muscle use Cardiovascular: regular rate, rhythm, no gallop, no murmur Abdomen: normal bowel sounds, non tender, soft Extremities: normal inspection, no pedal edema, no calf tenderness Neurologic/Psych: alert, normal mood/affect, oriented x 3 Skin: normal color, no jaundice, no rash Laboratory Results Last 24 Hours Test 06/13/17 04:50 06/13/17 05:25 Urine Color DK YELLOW Urine Appearance CLEAR Urine pH 5.0 Urine Specific [place] 1.034 Urine Protein TRACE Urine Glucose (UA) NEG Urine Ketones NEG Urine Occult Blood NEG Urine Nitrite NEG Urine Bilirubin NEG Urine Urobilinogen NEG Urine Leukocyte Esterase NEG Urine WBC (Auto) 1-5 /hpf Urine RBC (Auto) 5-10 /hpf Urine Hyaline Casts (Auto) 1-5 /lpf Urine Epithelial Cells (Auto) 10-20 /lpf Urine Bacteria (Auto) NEG White Blood Count 14.96 K/uL Red Blood Count 4.73 M/uL Hemoglobin 15.2 g/dL Hematocrit 44.0 % Mean Corpuscular Volume 93.0 fL Mean Corpuscular Hemoglobin 32.1 pg Mean Corpuscular Hemoglobin Concent 34.5 g/dl Platelet Count 185 K/uL Mean Platelet Volume 9.6 fL Neutrophils (%) (Auto) 91.7 % Lymphocytes (%) (Auto) 3.2 % Monocytes (%) (Auto) 4.7 % Eosinophils (%) (Auto) 0.0 % Basophils (%) (Auto) 0.1 % Neutrophils # (Auto) 13.71 K/uL Lymphocytes # (Auto) 0.48 K/uL Monocytes # (Auto) 0.71 K/uL Eosinophils # (Auto) 0.00 K/uL Basophils # (Auto) 0.01 K/uL RDW Standard Deviation 46.4 fL RDW Coefficient of Variation 13.6 % Immature Granulocyte % (Auto) 0.3 % Immature Granulocyte # (Auto) 0.05 K/uL Sodium Level 141 mmol/L Potassium Level 3.9 mmol/L Chloride Level 105 mmol/L Carbon Dioxide Level 27 mmol/L Anion Gap 9.0 mmol/L Blood Urea Nitrogen 32 mg/dl Creatinine 1.41 mg/dl Est Creatinine Clear Calc Drug Dose 51.3 ml/min Estimated GFR () 58.5 Estimated GFR (Non- 50.5 BUN/Creatinine Ratio 23.0 Random Glucose 131 mg/dl Calcium Level 8.8 mg/dl Total Bilirubin 0.5 mg/dl Aspartate Amino Transf (AST/SGOT) 19 U/L Alanine Aminotransferase (ALT/SGPT) 32 U/L Alkaline Phosphatase 86 U/L Total Protein 7.0 gm/dl Albumin 3.8 gm/dl Globulin 3.2 gm/dl Albumin/Globulin Ratio 1.2 Lipase 102 U/L Impression Patient is a 71 year old male w N/V, loose stools started on Tuesday, w symptoms worse on Tuesday night prompting him to go to ED for eval. Labs showed mild leukocytosis w WBC 14K, no LFTs or lipase elevation. CT abd/pelvis suspicious for low grade SBO vs ileus. No risk factors of abd surgeries, adhesions, narcotic uses. Last colonoscopy in 2013 w benign polyps, no family hx of colon ca. Symptoms have resolved now, abd exam soft, no pain on palpation, + bowel sounds. Plan - Can defer NGT placement unless N/V again - Check stool for infections (Cdiff, Cx) if diarrhea ? bacterial vs viral gastroenteritis - NPO except sips and chips - F/U with GI provider at his hometown in [place] upon DC. - KUB tomorrow. - Surgery consulted attg add I interviewed and examined pt, reviewed chart and labs, agree with plans as above. Pt with abrupt onset of n/v/d. CT shows mildly dil SB loops without transition point. Pt has no risk factors for obstruction. Suspect gastroenteritis. Cont supportive care. Expect gradual spont resolution of symptoms. Will sign off, please reconsult if needed.
[2017-06-13 15:16] VITALS: BP 114/71; PULSE 75; TEMP 37; O2SAT 92
[2017-06-13 15:40] VITALS: O2SAT 92
[2017-06-13 23:27] VITALS: BP 107/70; PULSE 66; TEMP 36.9; O2SAT 90
[2017-06-14] MEDS: SODIUM CHLORIDE 0.9% 1000ML 1,000 ML IV SCH ×2 (05:27→16:17)
[2017-06-14 06:15] LABS: BASO % 0.1 %; BASO ABS # 0.01 K/uL (0-0.2); COMPLETE YES; EOS % 1.3 %; IG% 0.1 %; LYMPH % 14.6 %; LYMPH ABS # 1.08 K/uL (1.2-3.4); MEAN CELL VOLUME 94.1 fL (80-100); MEAN CORPUSCULAR HEMOGLOBIN 31.3 pg (25-34); MEAN CORPUSCULAR HGB CONC 33.2 g/dl (32-36); MEAN PLATELET VOLUME 9.9 fL (7.4-10.4); MONO % 9.6 %; NEUT % 74.3 %; PLATELET COUNT 151 K/uL (130-400); RED BLOOD COUNT 3.93 M/uL (4.7-6.1); WHITE BLOOD COUNT 7.41 K/uL (4.8-10.8)
--- NOTE | 2017-06-14 06:48 | Surgery Progress Note ---
Surgery Progress Note Date of Service Jun 14, 2017. Subjective + bowel movement, + flatus minimal pain- loose bms Objective Vital Signs: Date Time Temp Pulse Resp B/P (MAP) Pulse Ox O2 Delivery O2 Flow Rate FiO2 06/13/17 23:27 36.9 66 16 107/70 (82) 90 Room Air 06/13/17 23:20 Room Air 06/13/17 15:40 92 Room Air 06/13/17 15:16 37.0 75 18 114/71 (85) 92 Room Air 06/13/17 10:00 37.2 94 18 117/73 (88) 93 Room Air 06/13/17 09:35 Room Air 06/13/17 09:11 84 18 126/69 96 Room Air 06/13/17 08:00 94 Room Air 06/13/17 07:45 92 18 126/75 94 Room Air General Appearance: no apparent distress Respiratory/Chest: no respiratory distress Abdomen: normal bowel sounds (active bowel snds), + distended Laboratory Results: Results Past 24 Hours Test 06/14/17 05:38 Range/Units White Blood Count 7.41 4.8-10.8 K/uL Red Blood Count 3.93 4.7-6.1 M/uL Hemoglobin 12.3 14.0-18.0 g/dL Hematocrit 37.0 42-52 % Mean Corpuscular Volume 94.1 80-100 fL Mean Corpuscular Hemoglobin 31.3 25-34 pg Mean Corpuscular Hemoglobin Concent 33.2 32-36 g/dl Platelet Count 151 130-400 K/uL Mean Platelet Volume 9.9 7.4-10.4 fL Neutrophils (%) (Auto) 74.3 % Lymphocytes (%) (Auto) 14.6 % Monocytes (%) (Auto) 9.6 % Eosinophils (%) (Auto) 1.3 % Basophils (%) (Auto) 0.1 % Neutrophils # (Auto) 5.50 1.4-6.5 K/uL Lymphocytes # (Auto) 1.08 1.2-3.4 K/uL Monocytes # (Auto) 0.71 0.11-0.59 K/uL Eosinophils # (Auto) 0.10 0-0.5 K/uL Basophils # (Auto) 0.01 0-0.2 K/uL RDW Standard Deviation 48.1 36.4-46.3 fL RDW Coefficient of Variation 13.8 11.5-14.5 % Immature Granulocyte % (Auto) 0.1 % Immature Granulocyte # (Auto) 0.01 0.00-0.02 K/uL Assessment & Plan 06/14/17- having loose bms now- will try clear liquids- adv as tolerated per surgery. check labs- does not seem to have mechanical obstruction
[2017-06-14 07:07] LABS: ALKALINE PHOSPHATASE 58 U/L (45-117); ALT/SGPT 24 U/L (12-78); BLOOD UREA NITROGEN 25 mg/dl (7-18); BUN/CREATININE RATIO 21.5 (10-20); CALCIUM 7.9 mg/dl (8.5-10.1); CARBON DIOXIDE 26 mmol/L (21-32); CHLORIDE 111 mmol/L (98-107); CREATININE 1.15 mg/dl (0.60-1.40); GLUCOSE 71 mg/dl (70-99); PHOSPHORUS 2.1 mg/dl (2.5-4.9); SODIUM 142 mmol/L (136-145)
[2017-06-14 07:45] VITALS: BP 111/71; PULSE 60; TEMP 37; O2SAT 92
[2017-06-14 08:02] LABS: MAGNESIUM 1.9 mg/dl (1.8-2.4); POTASSIUM 3.5 mmol/L (3.5-5.1)
--- NOTE | 2017-06-14 08:32 | DIAGNOSTIC IMAGING REPORT ---
CHEST AND ABDOMEN 2 VIEWS HISTORY: Small bowel obstruction.Vomiting. Follow-up. COMPARISON: Abdomen and pelvis CT 06/13/2017. FINDINGS: There is persistent elevation of the left hemidiaphragm. Left basilar linear densities consistent with subsegmental atelectasis. The upper lung zones are clear. No pneumothorax. The heart is normal in size. No pneumoperitoneum. No pneumatosis. Nondilated gas-filled colon is noted. There are few mildly dilated gas-filled loop of small bowel within the abdomen. Findings are consistent with a small bowel obstruction. The small bowel loops within the upper abdomen measure up to 4.1 cm. No renal or ureteral calculi. IMPRESSION: Multiple dilated gas-filled loops of small bowel within the abdomen consistent with a small bowel obstruction. This is not significantly changed. Electronically signed by: Perfecto Berger M.D. 06/14/2017 8:30 AM Dictated Date/Time: 06/14/2017 8:28 AM
[2017-06-14] MEDS: ASPIRIN 81 MG ECTAB PO SCH (08:56)
[2017-06-14] MEDS: ATORVASTATIN 40 MG TAB PO SCH (08:56)
[2017-06-14 08:57] VITALS: BP 114/72; PULSE 60
[2017-06-14] MEDS: AMLODIPINE BESYLATE 5 MG TAB PO SCH (08:58)
[2017-06-14] MEDS: ENALAPRIL MALEATE 10 MG TAB PO SCH (08:58)
--- NOTE | 2017-06-14 09:56 | Clinical Documentation Query ---
CLINICAL DOCUMENTATION QUERY Dr. GEORGE, In your clinical opinion is this patient being managed for: ( x) Acute kidney failure on CKD stage III ( ) Not Agree ( ) Other explanation of clinical findings (Please Explain) ( ) Unable to determine (Please Define) ( ) Need to Discuss The medical record reflects the following clinical findings, treatment, and risk factors. Clinical Indicators: 71 yo male presenting with vomiting. Initial Cr 1.41 (GFR 50) which has trended down to 1.15 (GFR 64) with IV fluid administration. Per pt report, he was told he had "mild kidney disease." Treatment: IV fluids, treat comorbid diseases, monitor PRP's Risk Factors:vomiting, poor fluid intake, HTN, CAD Please clarify and document your clinical opinion in the progress notes and discharge summary. Terms such as "probable", "suspected", "likely", "questionable", "possible", or "still to be ruled out" are acceptable. IF IN AGREEMENT, YOU MUST DOCUMENT ABOVE DIAGNOSTIC STATEMENT IN DAILY PROGRESS NOTES AND DISCHARGE SUMMARY. This document is not part of the patient's record. Thank You, January Gaytan, RN [phone]
[2017-06-14] MEDS: PANTOprazole INJ 40 MG in SYRINGE 0 ML IV SCH (11:01)
[2017-06-14 15:13] VITALS: BP 108/69; PULSE 60; TEMP 37.1; O2SAT 94
--- NOTE | 2017-06-14 18:33 | Progress Note ---
Internal Med Progress Note Date of Service: Jun 14, 2017. Provider Documentation: SUBJECTIVE: [] OBJECTIVE: Vital Signs-as noted below Exam: General-[] Eyes-[] ENT-[] Neck-[] Lungs-[] Heart-[] Abdomen-[] Extremities-[] Neuro-[] Lab data as noted below. ASSESSMENT & PLAN: [] DVT PROPHYLAXIS [] DISPOSITION [] Vital Signs: Date Time Temp Pulse Resp B/P (MAP) Pulse Ox O2 Delivery O2 Flow Rate FiO2 06/14/17 15:13 37.1 60 18 108/69 (82) 94 Room Air 06/14/17 08:57 60 114/72 (86) 06/14/17 07:45 37.0 60 18 111/71 (84) 92 Room Air 06/14/17 07:00 Room Air 06/13/17 23:27 36.9 66 16 107/70 (82) 90 Room Air 06/13/17 23:20 Room Air Lab Results: Results Past 24 Hours Test 06/14/17 05:38 06/14/17 07:26 Range/Units White Blood Count 7.41 4.8-10.8 K/uL Red Blood Count 3.93 4.7-6.1 M/uL Hemoglobin 12.3 14.0-18.0 g/dL Hematocrit 37.0 42-52 % Mean Corpuscular Volume 94.1 80-100 fL Mean Corpuscular Hemoglobin 31.3 25-34 pg Mean Corpuscular Hemoglobin Concent 33.2 32-36 g/dl Platelet Count 151 130-400 K/uL Mean Platelet Volume 9.9 7.4-10.4 fL Neutrophils (%) (Auto) 74.3 % Lymphocytes (%) (Auto) 14.6 % Monocytes (%) (Auto) 9.6 % Eosinophils (%) (Auto) 1.3 % Basophils (%) (Auto) 0.1 % Neutrophils # (Auto) 5.50 1.4-6.5 K/uL Lymphocytes # (Auto) 1.08 1.2-3.4 K/uL Monocytes # (Auto) 0.71 0.11-0.59 K/uL Eosinophils # (Auto) 0.10 0-0.5 K/uL Basophils # (Auto) 0.01 0-0.2 K/uL RDW Standard Deviation 48.1 36.4-46.3 fL RDW Coefficient of Variation 13.8 11.5-14.5 % Immature Granulocyte % (Auto) 0.1 % Immature Granulocyte # (Auto) 0.01 0.00-0.02 K/uL Sodium Level 142 136-145 mmol/L Potassium Level 3.5 3.5-5.1 mmol/L Chloride Level 111 98-107 mmol/L Carbon Dioxide Level 26 21-32 mmol/L Anion Gap 5.0 3-11 mmol/L Blood Urea Nitrogen 25 7-18 mg/dl Creatinine 1.15 0.60-1.40 mg/dl Est Creatinine Clear Calc Drug Dose 62.9 ml/min Estimated GFR () 74.8 Estimated GFR (Non- 64.6 BUN/Creatinine Ratio 21.5 10-20 Random Glucose 71 70-99 mg/dl Calcium Level 7.9 8.5-10.1 mg/dl Phosphorus Level 2.1 2.5-4.9 mg/dl Magnesium Level 1.9 1.8-2.4 mg/dl Total Bilirubin 0.5 0.2-1 mg/dl Aspartate Amino Transf (AST/SGOT) 19 15-37 U/L Alanine Aminotransferase (ALT/SGPT) 24 12-78 U/L Alkaline Phosphatase 58 45-117 U/L Total Protein 5.5 6.4-8.2 gm/dl Albumin 2.8 3.4-5.0 gm/dl Globulin 2.7 2.5-4.0 gm/dl Albumin/Globulin Ratio 1.0 0.9-2
--- NOTE | 2017-06-14 19:25 | Progress Note ---
Internal Med Progress Note Date of Service: Jun 14, 2017. Provider Documentation: SUBJECTIVE: feels better , abdominal pain has resolved had loose bowel movement this AM no further diarrhea episode of diarrhea after that tolerating clear diet well no nausea or vomiting walked on the hallway earlier , feels abdominal distention has improved OBJECTIVE: Vital Signs-as noted below Exam: General-no apparent sign of distress Eyes-sclera non icteric , PERRLA/EOMI ENT-moist oral mucosa , normal Neck-no thyromegaly , trachea midline Lungs-clear to auscultate Heart-regular S1/S2 Abdomen-soft, mildly distended, non tender , bowel sound active Extremities-no lower ext edema Neuro-AAO x3, no focal neurological deficit Lab data as noted below. ASSESSMENT & PLAN: ABDOMINAL PAIN /DISTENTION VOMITING - SBO : clinically improved able to have bowel movement , tolerating PO presented with abdominal pain distension /nausea -vomiting . CT abd/pelvis: IMPRESSION: Multiple mildly dilated loops of small bowel within the lower abdomen and pelvis with air-fluid levels without discrete transition point identified, suspicious for low-grade small bowel obstruction or ileus. No pneumoperitoneum or pneumatosis. Colonic diverticulosis without diverticulitis Cholelithiasis without CT evidence of acute cholecystitis. -no prior hx of bowel obstruction ,no hx of prior abdominal surgery Xray of abdomen : IMPRESSION: Multiple dilated gas-filled loops of small bowel within the abdomen consistent with a small bowel obstruction. This is not significantly changed. -Surgery consulted , appreciate input -pt managed to pass flatus , had multiple loose bowel movements ordered for stool for C diff and stool culture diet advanced to clears -tolerating well LIBRADO ON CKD STAGE 2-3 due to above renal function improved to baseline with IV hydration tolerating PO IVF D/lorena HX of CAD Pt denies CP, SOB. EKG: NSR, rate 93, EKG -no ischemic changes cont cardiac meds HTN : Cont out pt meds GERD -PPI SANCHEZ -CPAP HS per home settings -will hold home Provigil at this time DVT PROPHYLAXIS -SCDs DISPOSITION -Pt is form [place] , visiting daughter in [place] -discharge home when medically stable -Follows with Dr Olesya Bond with [facility] in [place] for routine care Vital Signs: Date Time Temp Pulse Resp B/P (MAP) Pulse Ox O2 Delivery O2 Flow Rate FiO2 11/28/17 16:18 Room Air 06/14/17 15:13 37.1 60 18 108/69 (82) 94 Room Air 06/14/17 08:57 60 114/72 (86) 06/14/17 07:45 37.0 60 18 111/71 (84) 92 Room Air 06/14/17 07:00 Room Air 06/13/17 23:27 36.9 66 16 107/70 (82) 90 Room Air 06/13/17 23:20 Room Air Lab Results: Results Past 24 Hours Test 06/14/17 05:38 06/14/17 07:26 Range/Units White Blood Count 7.41 4.8-10.8 K/uL Red Blood Count 3.93 4.7-6.1 M/uL Hemoglobin 12.3 14.0-18.0 g/dL Hematocrit 37.0 42-52 % Mean Corpuscular Volume 94.1 80-100 fL Mean Corpuscular Hemoglobin 31.3 25-34 pg Mean Corpuscular Hemoglobin Concent 33.2 32-36 g/dl Platelet Count 151 130-400 K/uL Mean Platelet Volume 9.9 7.4-10.4 fL Neutrophils (%) (Auto) 74.3 % Lymphocytes (%) (Auto) 14.6 % Monocytes (%) (Auto) 9.6 % Eosinophils (%) (Auto) 1.3 % Basophils (%) (Auto) 0.1 % Neutrophils # (Auto) 5.50 1.4-6.5 K/uL Lymphocytes # (Auto) 1.08 1.2-3.4 K/uL Monocytes # (Auto) 0.71 0.11-0.59 K/uL Eosinophils # (Auto) 0.10 0-0.5 K/uL Basophils # (Auto) 0.01 0-0.2 K/uL RDW Standard Deviation 48.1 36.4-46.3 fL RDW Coefficient of Variation 13.8 11.5-14.5 % Immature Granulocyte % (Auto) 0.1 % Immature Granulocyte # (Auto) 0.01 0.00-0.02 K/uL Sodium Level 142 136-145 mmol/L Potassium Level 3.5 3.5-5.1 mmol/L Chloride Level 111 98-107 mmol/L Carbon Dioxide Level 26 21-32 mmol/L Anion Gap 5.0 3-11 mmol/L Blood Urea Nitrogen 25 7-18 mg/dl Creatinine 1.15 0.60-1.40 mg/dl Est Creatinine Clear Calc Drug Dose 62.9 ml/min Estimated GFR () 74.8 Estimated GFR (Non- 64.6 BUN/Creatinine Ratio 21.5 10-20 Random Glucose 71 70-99 mg/dl Calcium Level 7.9 8.5-10.1 mg/dl Phosphorus Level 2.1 2.5-4.9 mg/dl Magnesium Level 1.9 1.8-2.4 mg/dl Total Bilirubin 0.5 0.2-1 mg/dl Aspartate Amino Transf (AST/SGOT) 19 15-37 U/L Alanine Aminotransferase (ALT/SGPT) 24 12-78 U/L Alkaline Phosphatase 58 45-117 U/L Total Protein 5.5 6.4-8.2 gm/dl Albumin 2.8 3.4-5.0 gm/dl Globulin 2.7 2.5-4.0 gm/dl Albumin/Globulin Ratio 1.0 0.9-2
[2017-06-14] MEDS ORDERED: NURSING VERBAL MED ORDER ONE ×2 (22:30→22:45)
[2017-06-14 23:01] VITALS: BP 115/74; PULSE 60; TEMP 37.1; O2SAT 93
--- NOTE | 2017-06-14 23:10 | Discharge Instructions ---
Discharge Instructions Date of Service Jun 14, 2017. Admission Reason for Admission: Vomiting Discharge Discharge Diagnosis / Problem: SMALL BOWEL OBSTRUCTION -RESOLVED /ACUTE DIVERTICULITIS OF COLON Discharge Goals Goal(s): Decrease discomfort, Improve function, Increase independence, Improve disease control, Diagnostic testing Activity Recommendations Activity Limitations: resume your previous activity . Instructions / Follow-Up Instructions / Follow-Up FOLLOW UP WITH FAMILY PHYSICIAN IN 1-2 WEEKS COMPLETE ANTIBIOTIC CIPROFLOXACIN AND FLAGYL FOR 10 DAYS FOR ACUTE DIVERTICULITIS WILL NEED COLONOSCOPY IN 6-8 WEEKS FOR EVALUATION OF DIVERTICULAR DISEASE Current Hospital Diet Patient's current hospital diet: LOW FIBER DIET Discharge Diet Recommended Diet: Low Fiber Diet (FOR 2-3 WEEKS ) Pending Studies Studies pending at discharge: no Medical Emergencies . Who to Call and When: Medical Emergencies: If at any time you feel your situation is an emergency, please call 911 immediately. . Non-Emergent Contact Non-Emergency issues call your: Primary Care Provider . . "Provider Documentation" section prepared by Adrienne Chavez. . VTE Core Measure Inpt VTE Proph given/why not?: SCD's
--- NOTE | 2017-06-15 06:35 | Surgery Progress Note ---
Surgery Progress Note Date of Service Jun 15, 2017. Subjective passing flatus- still a little bloated no pain Objective Vital Signs: Date Time Temp Pulse Resp B/P (MAP) Pulse Ox O2 Delivery O2 Flow Rate FiO2 06/14/17 23:30 CPAP 06/14/17 23:01 37.1 60 15 115/74 (88) 93 CPAP 06/14/17 16:18 Room Air 06/14/17 15:13 37.1 60 18 108/69 (82) 94 Room Air 06/14/17 08:57 60 114/72 (86) 06/14/17 07:45 37.0 60 18 111/71 (84) 92 Room Air 06/14/17 07:00 Room Air General Appearance: no apparent distress Respiratory/Chest: no respiratory distress Abdomen: normal bowel sounds, + distended Laboratory Results: Results Past 24 Hours Test 06/14/17 07:26 Range/Units Potassium Level 3.5 3.5-5.1 mmol/L Magnesium Level 1.9 1.8-2.4 mg/dl Aspartate Amino Transf (AST/SGOT) 19 15-37 U/L Assessment & Plan 06/15/17- some bloating- will order CT w/ oral contrast to assess transit of contrast- no abd pain- seems more like ileus/ enteritis than mech obstruction 06/14/17- having loose bms now- will try clear liquids- adv as tolerated per surgery. check labs- does not seem to have mechanical obstruction 06/14/17- having loose bms now- will try clear liquids- adv as tolerated per surgery. check labs- does not seem to have mechanical obstruction addendum- CT showed no evidence of sbo , relatively good transit of contrast- evidence of mild sigmoid inflammation- possible diverticulitis- will begin cipro/ flagyl, full liquids, check stool for c diff.
[2017-06-15] MEDS ORDERED: OPTIRAY 320 IV PRN (07:00)
[2017-06-15 07:06] VITALS: BP 118/73; PULSE 54; TEMP 36.8; O2SAT 91
[2017-06-15 07:51] LABS: BLOOD UREA NITROGEN 15 mg/dl (7-18); BUN/CREATININE RATIO 12.8 (10-20); CALCIUM 8.4 mg/dl (8.5-10.1); CARBON DIOXIDE 25 mmol/L (21-32); CHLORIDE 111 mmol/L (98-107); CREATININE 1.16 mg/dl (0.60-1.40); GLUCOSE 83 mg/dl (70-99); PHOSPHORUS 2.7 mg/dl (2.5-4.9); SODIUM 142 mmol/L (136-145)
[2017-06-15 08:25] LABS: POTASSIUM 3.4 mmol/L (3.5-5.1)
[2017-06-15 08:37] VITALS: BP 125/80; PULSE 61
[2017-06-15] MEDS: AMLODIPINE BESYLATE 5 MG TAB PO SCH (08:38)
[2017-06-15] MEDS: PANTOprazole SOD 40 MG TAB PO SCH (08:38)
[2017-06-15] MEDS: ATORVASTATIN 40 MG TAB PO SCH (08:38)
[2017-06-15] MEDS: ENALAPRIL MALEATE 10 MG TAB PO SCH (08:38)
[2017-06-15] MEDS: ASPIRIN 81 MG ECTAB PO SCH (08:38)
--- NOTE | 2017-06-15 09:08 | DIAGNOSTIC IMAGING REPORT ---
ABD/PELVIS IV AND ORAL CONT CLINICAL HISTORY: 71 years-old Male presenting with assess transit of contrast, follow-up partial small bowel obstruction. TECHNIQUE: Multidetector CT of the abdomen and pelvis was performed after the administration of oral and intravenous contrast. IV contrast: 94 mL of Optiray 320. A dose lowering technique was used consistent with the principles of ALARA (as low as reasonably achievable). COMPARISON: 06/13/2017. CT DOSE (mGy.cm): The estimated cumulative dose is 585.84 mGy.cm. FINDINGS: Erp Programmer topogram: Diffuse gaseous distention of bowel. Elevation of the left hemidiaphragm. Lung bases: Bandlike and dependent opacities in the left lung base have increased from prior. Calcified granuloma also noted at the left lung base. Minimal bandlike opacity in the lingula. Groundglass opacity dependently in the right middle lobe. Minimal dependent atelectasis at the right lower lobe. Coronary artery calcification. Coronary stents may be in place. Normal heart size. No pericardial or pleural effusion. Liver: Normal morphology. No liver lesion. Patent hepatic vasculature. Biliary: No intrahepatic or extrahepatic biliary ductal dilatation. Gallbladder contains gallstones. Pancreas: Normal. Spleen: Normal. Adrenal glands: Normal. Kidneys and ureters: Normal. No hydronephrosis. Bladder: Incompletely evaluated secondary to underdistention. Pelvic organs: Prostate enlargement likely secondary to benign prostatic hyperplasia. Bowel: Diverticulosis of the distal descending colon and proximal sigmoid colon with mild wall thickening likely indicating chronic diverticular disease. Minimal adjacent peritoneal thickening and trace pericolonic inflammatory change may be present. Peritoneal thickening is new from the prior exam. Normal appendix. Oral contrast has almost transited to the terminal ileum, which is decompressed. No bowel obstruction. Resolution of previously noted dilated small bowel. No small bowel wall thickening or perienteric inflammatory change. Peritoneal cavity: Trace perihepatic, perisplenic, and right lower quadrant ascites. No free intraperitoneal gas. Lymph nodes: No enlarged lymph nodes in the abdomen or pelvis. Vasculature: Atherosclerosis of the normal caliber abdominal aorta. IVC patent. Abdominal wall: Small fat-containing right inguinal hernia. Umbilical hernia also noted. Musculoskeletal: Degenerative changes of the spine. IMPRESSION: 1. Interval resolution of small bowel distention. No evidence of partial or complete bowel obstruction or ileus on the current exam. 2. Interval development of mild acute diverticulitis of the distal descending colon and proximal sigmoid colon, which appears uncomplicated. 3. Small amount of abdominal pelvic ascites, likely reactive. 4. Extensive opacities at the lung bases likely atelectasis and/or scarring. 5. Prostatomegaly. 6. Cholelithiasis. Electronically signed by: Jaime Viramontes M.D. 06/15/2017 9:07 AM Dictated Date/Time: 06/15/2017 8:57 AM
[2017-06-15] MEDS ORDERED: POTASSIUM CHLORIDE 10 MEQ TABCR PO STA (12:48)
--- NOTE | 2017-06-15 12:55 | Progress Note ---
Internal Med Progress Note Date of Service: Jun 15, 2017. Provider Documentation: SUBJECTIVE: tolerating diet well has mild abdominal distention no pain , had bowel movement earlier no nausea or vomiting OBJECTIVE: Vital Signs-as noted below Exam: General-no apparent sign of distress Eyes-sclera non icteric , PERRLA/EOMI ENT-moist oral mucosa , normal Neck-no thyromegaly , trachea midline Lungs-clear to auscultate Heart-regular S1/S2 Abdomen-soft, mildly distended, non tender , bowel sound active Extremities-no lower ext edema Neuro-AAO x3, no focal neurological deficit Lab data as noted below. ASSESSMENT & PLAN: ABDOMINAL PAIN /DISTENTION VOMITING - SBO : resolved CT ABDOMEN/PELVIS WITH PO AND IV CONTRAST DONE TODAY IMPRESSION: 1. Interval resolution of small bowel distention. No evidence of partial or complete bowel obstruction or ileus on the current exam. 2. Interval development of mild acute diverticulitis of the distal descending colon and proximal sigmoid colon, which appears uncomplicated. -D/w Surgery Dr Aleman -pt will be started on IV Flagyl and Ciprofloxacin for acute diverticulitis -advanced diet to Full liquid -for lunch then advanced as tolerated to low residue diet pt will need 10 days course of Cipro and Flagyl for acute diverticulitis out pt follow up with GI and needs a surveillance colonoscopy on 6-8 weeks LIBRADO ON CKD STAGE 2-3 due to above renal function improved to baseline with IV hydration tolerating PO IVF D/lorena HX of CAD Pt denies CP, SOB. EKG: NSR, rate 93, EKG -no ischemic changes cont cardiac meds HTN : Cont out pt meds GERD -PPI SANCHEZ -CPAP HS per home settings DVT PROPHYLAXIS -SCDs DISPOSITION -Pt is form [place] , visiting daughter in [place] -possible discharge home in next 24-48 hrs if pt tolerated advancement of diet -Follows with Dr Olesya Bond with [facility] in [place] for routine care Vital Signs: Date Time Temp Pulse Resp B/P (MAP) Pulse Ox O2 Delivery O2 Flow Rate FiO2 06/15/17 15:30 Room Air 06/15/17 15:27 36.8 60 18 116/74 (88) 92 Room Air 06/15/17 08:37 61 125/80 (95) 06/15/17 07:30 Room Air 06/15/17 07:06 36.8 54 16 118/73 (88) 91 Room Air 06/14/17 23:30 CPAP Lab Results: Results Past 24 Hours Test 06/15/17 07:06 06/15/17 07:45 Range/Units Sodium Level 142 136-145 mmol/L Potassium Level 3.4 3.5-5.1 mmol/L Chloride Level 111 98-107 mmol/L Carbon Dioxide Level 25 21-32 mmol/L Anion Gap 6.0 3-11 mmol/L Blood Urea Nitrogen 15 7-18 mg/dl Creatinine 1.16 0.60-1.40 mg/dl Est Creatinine Clear Calc Drug Dose 62.4 ml/min Estimated GFR () 74.1 Estimated GFR (Non- 63.9 BUN/Creatinine Ratio 12.8 10-20 Random Glucose 83 70-99 mg/dl Calcium Level 8.4 8.5-10.1 mg/dl Phosphorus Level 2.7 2.5-4.9 mg/dl Magnesium Level 2.0 1.8-2.4 mg/dl Chemistry Specimen Hemolysis Microbiology Results 06/15/17 C.difficile Toxin B Gene (PCR) - Final, Complete No C. difficile toxin B gene detected 06/15/17 Shiga Toxin Test, Received Pending 06/15/17 Stool Culture, Received Pending
[2017-06-15] MEDS ORDERED: CPR/500 PO (12:57)
[2017-06-15] MEDS ORDERED: METR-162 PO (12:57)
[2017-06-15] MEDS: METRONIDAZOLE / NSS 500 MG in PREMIXED NSS 100 ML IV SCH ×2 (13:40→21:10)
[2017-06-15] MEDS: CIPROFLOXACIN / D5W 400 MG in PREMIXED IN D5W 200 ML IV SCH ×2 (13:40→22:24)
[2017-06-15 15:27] VITALS: BP 116/74; PULSE 60; TEMP 36.8; O2SAT 92
[2017-06-15 23:26] VITALS: BP 134/80; PULSE 59; TEMP 37; O2SAT 92
[2017-06-16] MEDS: METRONIDAZOLE / NSS 500 MG in PREMIXED NSS 100 ML IV SCH ×2 (05:22→13:18)
[2017-06-16 07:43] VITALS: BP 132/85; PULSE 56; TEMP 36.5; O2SAT 92
[2017-06-16] MEDS: CIPROFLOXACIN / D5W 400 MG in PREMIXED IN D5W 200 ML IV SCH (08:34)
[2017-06-16] MEDS: PANTOprazole SOD 40 MG TAB PO SCH (08:35)
[2017-06-16] MEDS: ASPIRIN 81 MG ECTAB PO SCH (08:35)
[2017-06-16] MEDS: ATORVASTATIN 40 MG TAB PO SCH (08:35)
[2017-06-16] MEDS: ENALAPRIL MALEATE 10 MG TAB PO SCH (08:35)
[2017-06-16] MEDS: AMLODIPINE BESYLATE 5 MG TAB PO SCH (08:35)
[2017-06-16 08:46] LABS: BUN/CREATININE RATIO 10.3 (10-20); CALCIUM 8.4 mg/dl (8.5-10.1); CREATININE 1.24 mg/dl (0.60-1.40); POTASSIUM 3.4 mmol/L (3.5-5.1)
--- NOTE | 2017-06-16 08:53 | DIAGNOSTIC IMAGING REPORT ---
ABDOMEN 2 VIEWS CLINICAL HISTORY: Vomiting. Assess contrast transit. FINDINGS: Supine and erect abdominal radiographs are correlated with abdominal CT dated 06/15/2017. There is a nonobstructed abdominal bowel gas pattern. Enteric contrast is present throughout the colon. This outlines colonic diverticulosis. No evidence of intraperitoneal free air is seen. Calcified gallstones are seen in the right upper quadrant. The bony structures appear intact. IMPRESSION: 1. Nonobstructed abdominal bowel gas pattern. 2. Enteric contrast is present throughout the colon and outlines diverticular disease. 3. No intraperitoneal free air is seen. 4. Cholelithiasis. Electronically signed by: Honorio Jacques M.D. 06/16/2017 8:52 AM Dictated Date/Time: 06/16/2017 8:48 AM
--- NOTE | 2017-06-16 10:40 | Surgery Progress Note ---
Surgery Progress Note Date of Service Jun 16, 2017. Subjective feeling more normal- +bm film improved , all contrast in colon Objective Vital Signs: Date Time Temp Pulse Resp B/P (MAP) Pulse Ox O2 Delivery O2 Flow Rate FiO2 06/16/17 07:45 Room Air 06/16/17 07:43 36.5 56 19 132/85 (101) 92 Room Air 06/15/17 23:40 Room Air 06/15/17 23:26 37.0 59 17 134/80 (98) 92 CPAP 06/15/17 15:30 Room Air 06/15/17 15:27 36.8 60 18 116/74 (88) 92 Room Air Abdomen: normal bowel sounds Laboratory Results: Results Past 24 Hours Test 06/16/17 07:51 Range/Units Sodium Level 143 136-145 mmol/L Potassium Level 3.4 3.5-5.1 mmol/L Chloride Level 108 98-107 mmol/L Carbon Dioxide Level 28 21-32 mmol/L Anion Gap 8.0 3-11 mmol/L Blood Urea Nitrogen 13 7-18 mg/dl Creatinine 1.24 0.60-1.40 mg/dl Est Creatinine Clear Calc Drug Dose 58.4 ml/min Estimated GFR () 68.3 Estimated GFR (Non- 58.9 BUN/Creatinine Ratio 10.3 10-20 Random Glucose 92 70-99 mg/dl Calcium Level 8.4 8.5-10.1 mg/dl Microbiology Results 06/15/17 C.difficile Toxin B Gene (PCR) - Final, Complete No C. difficile toxin B gene detected 06/15/17 Shiga Toxin Test, Received Pending 06/15/17 Stool Culture, Received Pending Assessment & Plan 06/16/17- improving- can d/c on atbx from surgical std point 06/14/17- having loose bms now- will try clear liquids- adv as tolerated per surgery. check labs- does not seem to have mechanical obstruction addendum- CT showed no evidence of sbo , relatively good transit of contrast- evidence of mild sigmoid inflammation- possible diverticulitis- will begin cipro/ flagyl, full liquids, check stool for c diff. 06/14/17- having loose bms now- will try clear liquids- adv as tolerated per surgery. check labs- does not seem to have mechanical obstruction addendum- CT showed no evidence of sbo , relatively good transit of contrast- evidence of mild sigmoid inflammation- possible diverticulitis- will begin cipro/ flagyl, full liquids, check stool for c diff.
--- NOTE | 2017-06-16 13:07 | Discharge Summary ---
Discharge Summary Date of Service Jun 16, 2017. Discharge Summary Admission Date: Jun 13, 2017 at 07:40 Discharge Date: Jun 14, 2017 Discharge Disposition: Home Principal Diagnosis: SMALL BOWEL OBSTRUCTION -RESOLVED /ACUTE DIVERTICULITIS OF COLON Procedures: CT ABDOMEN /PELVIS WITH 0UT CONTRAST : 06/13/17 : IMPRESSION: 1. Multiple mildly dilated loops of small bowel within the lower abdomen and pelvis with air-fluid levels without discrete transition point identified. These findings are suspicious for low-grade small bowel obstruction or ileus. Follow-up recommended. No pneumoperitoneum or pneumatosis. 2. Colonic diverticulosis without diverticulitis. 3. Cholelithiasis without CT evidence of acute cholecystitis. 4. Evidence of prior granulomatous disease. XRAY OF ABDOMEN : IMPRESSION: Multiple dilated gas-filled loops of small bowel within the abdomen consistent with a small bowel obstruction. This is not significantly changed. CT ABDOMEN /PELVIS WITH CONTRAST 06/16/17: IMPRESSION: 1. Interval resolution of small bowel distention. No evidence of partial or complete bowel obstruction or ileus on the current exam. 2. Interval development of mild acute diverticulitis of the distal descending colon and proximal sigmoid colon, which appears uncomplicated. 3. Small amount of abdominal pelvic ascites, likely reactive. 4. Extensive opacities at the lung bases likely atelectasis and/or scarring. 5. Prostatomegaly. 6. Cholelithiasis. XRAY OF ABDOMEN : IMPRESSION: 1. Non obstructed abdominal bowel gas pattern. 2. Enteric contrast is present throughout the colon and outlines diverticular disease. 3. No intraperitoneal free air is seen. 4. Cholelithiasis. Consultations: SURGERY -DR OSWALD MICHAELS GI Medication Reconciliation New Medications: Ciprofloxacin (Ciprofloxacin HCl) 500 Mg Tab 1 TAB PO BID for 10 Days, #20 TABS Metronidazole (Flagyl) 500 Mg Tab 1 TAB PO TID for 10 Days, #30 TAB Continued Medications: Amlodipine (Norvasc) 5 Mg Tab 5 MG PO DAILY, TAB Aspirin (Aspirin Ec) 81 Mg Tab 81 MG PO DAILY Atorvastatin (Lipitor) 40 Mg Tab 40 MG PO DAILY, TAB Cholecalciferol (Vitamin D3) 1,000 Unit Tab 1 TAB PO DAILY for 90 Days, #90 TAB 3 Refills Enalapril (Vasotec) 10 Mg Tab 10 MG PO DAILY, TAB Fish Oil (Van Dyne-3) 1 Ea Cap 1 CAP PO DAILY, CAP Modafinil (Provigil) 200 Mg Tab 200 MG PO DAILY, TAB Multiple Vitamins W/ Minerals (Preservision/Lutein) 1 Cap Cap 1 CM PO DAILY Multivitamin (Multivitamin) Tab 1 TAB PO DAILY, TAB Pantoprazole (Protonix) 40 Mg Tab 40 MG PO DAILY, #30 TAB Admission Information HPI (per Admitting provider): Pt is 71 y/o M with PMH CAD with stent to LAD in 2013, HTN, GERD, CKD, SANCHEZ presented to ER with c/o vomiting. Pt reports 2 days ago started with some nausea and constipation. Initially took maalox with a little relief and ate a big meal. Had loose BM yesterday. Pt states yesterday started with increased nausea and vomiting and reports multiple episodes of vomiting over the past 15 hours. States dry heaves this am. No BM today. Last night temp 99F. Feels bloated and having epigastric pressure and burping and hiccups. Nothing to eat since yesterday. Tried sipping water through the night but had vomiting. Denies hx abdominal surgery or SBO in past. Denies hematemesis, melena, hematochezia, dysuria, urinary frequency/hesitancy, PAUL, dizziness, syncope, vision changes, neck pain, CP, SOB, orthopnea, palpitations, cough, sore throat, choking, otalgia, rhinorrhea, paresthesias, weakness, extremity edema, rashes. Pt visiting daughter. Is from [place]. PCP: Dr Olesya Huffman. In ER pt given 2 doses Zofran which pt states no further nausea and decreased epigastric pressure. No further vomiting. Given 1L NSS. Pt denies pain medicine at this time. CT abd/pelvis: Multiple mildly dilated loops of small bowel within the lower abdomen and pelvis with air-fluid levels without discrete transition point identified. suspicious for low-grade small bowel obstruction or ileus. No pneumoperitoneum or pneumatosis. Colonic diverticulosis without diverticulitis. Cholelithiasis without CT evidence of acute cholecystitis. Physical Exam (per Admitting): General Appearance: WD/WN, no apparent distress Head: normocephalic, atraumatic Eyes: normal inspection, PERRL, EOMI, sclerae normal ENT: hearing grossly normal (pt wearing hearing aid), pharynx normal, + pertinent finding (dry mucous membranes) Neck: supple, no JVD, no carotid bruits, trachea midline Respiratory/Chest: chest non-tender, lungs clear, normal breath sounds, no respiratory distress, no accessory muscle use Cardiovascular: regular rate, rhythm, no murmur, normal peripheral pulses Abdomen/GI: + pertinent finding (obese abdomen, hypoactive BS throughout, soft, +tenderness epigastric only without rebound or guarding ) Extremities/Musculoskelatal: normal inspection, normal capillary refill, no pedal edema, normal range of motion, non-tender Neurologic/Psych: alert, normal mood/affect, oriented x 3 Skin: normal color, warm/dry, + pertinent finding (excoriation left anterior ankle without surrounding erythema or edema) Hospital Course no pain of abdominal discomfort , tolerating low residue diet Xray of abdomen this morning shows no evidence of bowel obstruction contrast has passed through entire colon pt evaluated by Surgery this AM stable to be discharge home PHYSICAL EXAM : Exam: General-no apparent sign of distress Eyes-sclera non icteric , PERRLA/EOMI ENT-moist oral mucosa , normal Neck-no thyromegaly , trachea midline Lungs-clear to auscultate Heart-regular S1/S2 Abdomen-soft, mildly distended, non tender , bowel sound active Extremities-no lower ext edema Neuro-AAO x3, no focal neurological deficit ABDOMINAL PAIN /DISTENTION VOMITING - SBO : resolved CT ABDOMEN/PELVIS WITH PO AND IV CONTRAST DONE TODAY IMPRESSION: 1. Interval resolution of small bowel distention. No evidence of partial or complete bowel obstruction or ileus on the current exam. 2. Interval development of mild acute diverticulitis of the distal descending colon and proximal sigmoid colon, which appears uncomplicated. -D/w Surgery Dr Aleman -pt on Flagyl and Ciprofloxacin for acute diverticulitis -will need 10 days of x -advanced diet to low residue diet , tolerating well Xray of abdomen this am shows resolution of bowel obstruction stable to be discharged home out pt follow up with GI and needs a surveillance colonoscopy on 6-8 weeks LIBRADO ON CKD STAGE 2-3 resolved due to above renal function improved to baseline with IV hydration tolerating PO HX of CAD Pt denies CP, SOB. EKG: NSR, rate 93, EKG -no ischemic changes cont cardiac meds HTN : Cont out pt meds GERD -PPI SANCHEZ -CPAP HS per home settings DVT PROPHYLAXIS -SCDs DISPOSITION -Pt is form [place] , visiting daughter in [place] -stable to be discharged home -Follows with Dr Olesya Bond with [facility] in [place] for routine care -pt is asked to follow up with his family physician in a week after returning back to [place] -copy of the medical record given to patient for his hospital follow up Total time spent on discharge = 35 mins This includes examination of the patient, discharge planning, medication reconciliation, and communication with other providers. Discharge Instructions Discharge Instructions Date of Service Jun 14, 2017. Admission Reason for Admission: Vomiting Discharge Discharge Diagnosis / Problem: SMALL BOWEL OBSTRUCTION -RESOLVED /ACUTE DIVERTICULITIS OF COLON Discharge Goals Goal(s): Decrease discomfort, Improve function, Increase independence, Improve disease control, Diagnostic testing Activity Recommendations Activity Limitations: resume your previous activity . Instructions / Follow-Up Instructions / Follow-Up FOLLOW UP WITH FAMILY PHYSICIAN IN 1-2 WEEKS COMPLETE ANTIBIOTIC CIPROFLOXACIN AND FLAGYL FOR 10 DAYS FOR ACUTE DIVERTICULITIS WILL NEED COLONOSCOPY IN 6-8 WEEKS FOR EVALUATION OF DIVERTICULAR DISEASE Current Hospital Diet Patient's current hospital diet: LOW FIBER DIET Discharge Diet Recommended Diet: Low Fiber Diet (FOR 2-3 WEEKS ) Pending Studies Studies pending at discharge: no Medical Emergencies . Who to Call and When: Medical Emergencies: If at any time you feel your situation is an emergency, please call 911 immediately. . Non-Emergent Contact Non-Emergency issues call your: Primary Care Provider . . "Provider Documentation" section prepared by Adrienne Chavez. . VTE Core Measure Inpt VTE Proph given/why not?: SCD's Additional Copies To Jose Aleman M.D.
[2017-06-16 13:30] VITALS: BP 132/85; PULSE 56; TEMP 36.5; O2SAT 92
[2017-06-16 15:20] VITALS: BP 134/86; PULSE 56; TEMP 36.9; O2SAT 96
== END 2017-06-16 16:00 | disposition home or self-care (01) | DRG 389 ==
LOC: C.EDB 04:24 → C.MSW 07:40 → CMPBEDREQ 07:48 → ENRESERV 08:53
PROVIDERS: ADMIT Internal Medicine; ATTEND Hospitalist
DX: K56.609 Unspecified intestinal obstruction, unspecified as to partial versus complete obstruction (principal); K57.32 Diverticulitis of large intestine without perforation or abscess without bleeding; N17.9 Acute kidney failure, unspecified; E86.0 Dehydration; I12.9 Hypertensive chronic kidney disease with stage 1 through stage 4 chronic kidney disease, or unspecified chronic kidney disease; N18.3 Chronic kidney disease, stage 3 (moderate); I25.10 Atherosclerotic heart disease of native coronary artery without angina pectoris; K21.9 Gastro-esophageal reflux disease without esophagitis; K80.20 Calculus of gallbladder without cholecystitis without obstruction; G47.33 Obstructive sleep apnea (adult) (pediatric); Z95.5 Presence of coronary angioplasty implant and graft; Z99.89 Dependence on other enabling machines and devices; Z79.82 Long term (current) use of aspirin; Z79.899 Other long term (current) drug therapy